=== PATIENT | male | born 1980 | race Caucasian/White ===

== ENCOUNTER 2016-07-03 19:56 | Emergency (ER) ==
--- NOTE | 2016-07-03 20:50 | PROVIDER DOCUMENTATION ---
HPI-Musculoskeletal Pain/Inj - HX OF PRESENT ILLNESS-MUSKULOSKELTAL Quality of Pain: reports: aching Severity in ED: moderate Onset/Duration: just prior to arrival Timing: constant, getting worse Modifying Factors: improves with: immobilization Any recent injury?: Yes Locality of Occurance: Home Similar Symptoms Previously?: No Recently seen or treated by another doctor?: No <Niru Jimenez - Last Filed: 07/03/16 20:51> <Héctor Abdul - Last Filed: 07/03/16 22:04> - GENERAL Chief Complaint: Shoulder Injury Stated Complaint: @1500 RT SHOULDER DISLOCATED Time Seen by Provider: 07/03/16 20:43 - HX OF PRESENT ILLNESS-MUSKULOSKELTAL Nature of Presenting Problem: Pt states he fell while trying to jump a fence and dislocated his right shoulder. Has a friend attempt to pull the shoulder but his caused increased pain. Pt state he is unable to lower the shoulder as this makes it feel unstable and increases pain, is most comfortable with shoulder at 90 degrees horizontal abduction. Denies any other pain from fall. (Niru Jimenez) Review of Systems - Adult - REVIEW OF SYSTEMS - ADULT Constitutional: denies: chills, fever Eyes: denies: blurred vision, double vision Cardiovascular: denies: chest pain, irregular heart rate Respiratory: denies: cough, shortness of breath Gastrointestinal: denies: diarrhea, nausea, vomiting Musculoskeletal: reports: joint pain, muscle aches Neurological: denies: numbness, paresthesia All Other Systems: Reviewed and Negative <Niru Jimenez - Last Filed: 07/03/16 20:51> Past History - Adult - PAST MEDICAL HISTORY-ADULT Review of Records: reports: Old Records Reviewed, Nursing Assessment Review, Medications Reviewed, Social history reviewed & non-contributory. Major Childhood Illnesses: reports: denies history <Niru Jimenez - Last Filed: 07/03/16 20:51> Physical Exam-Injury Related - Physical Exam-Injury Related Initial Vital Signs Reviewed: Yes General Appearance: appears well, alert, moderate distress Eyes: PERRL/EOMI, pink conjunctivae Head, Ears, Nose, Mouth & Throat: normocephalic/atraumatic, moist mucous membranes Neck: non-tender, full range of motion, supple. negative: C-spine tenderness, decresed ROM, muscle spasm, pain on movement, vertebral point tenderness Respiratory: chest non-tender, lungs clear, normal breath sounds Cardiovascular: regular rate, rhythm, no edema Back Exam: normal inspection, no vertebral tenderness Extremity: normal gait, tenderness (right posterior shoulder with) Integumentary: normal color, warm/dry, blanching Neurologic: grossly normal, no motor/sensory deficits Psych/Mental Status: normal thought content, normal thought process - Glascow Coma Score Best Eye Response ([place]): (4) open spontaneously Best Verbal Response ([place]): (5) oriented Best Motor Response ([place]): (6) obeys commands [place] Total: 15 <Niru Jimenez - Last Filed: 07/03/16 20:51> Progress - CHANGE OF SHIFT REPORT (ED Provider) Report Given and Care Transferred to:: [facility] Time of Transfer: 20:51 Items Pending: Pain Control, Procedure Tentative Impression of Patient: shoulder dislocation <Niru Jimenez - Last Filed: 07/03/16 20:51> Procedures - DISLOCATION REDUCTION Right Shoulder Time-Out Verification Completed?: Yes Pre-Procedure Neurovascular Exam: Intact Conscious Sedation: Yes Reduction Attempts: 1 Post Procedure Neurovascular Exam: Intact Post Reduction Splint Applied?: Yes (sling) <Héctor Abdul - Last Filed: 07/03/16 22:04> Departure <Niru Jimenez - Last Filed: 07/03/16 20:51> - Departure Time of Disposition Order: 22:03 Certified Medical Emergency: Emergent <Héctor Abdul - Last Filed: 07/03/16 22:04> - Departure DIAGNOSIS: Shoulder dislocation Disposition: HOME 01 Condition: Stable Prescriptions: Methocarbamol [Robaxin-750] 750 mg PO TID #30 tablet Tramadol [Ultram] 50 mg PO TID #30 tablet Referrals: None,PCP [Primary Care Provider] - Wilson Ruiz MD [STAFF PHYSICIAN] - Attestation - Physician/ NABIL Attestation Patient care was provided by Advanced Practice Provider:: Yes Advanced Practice Provider:: Niru Jimenez Advanced Practice Provider documentation review:: The Mid-level provider documentation, treatment plan and medical decision making was reviewed by the physician who agrees with all treatment and medical decision making by the MLP. <Niru Jimenez - Last Filed: 07/03/16 20:51> Physician Attestation
[2016-07-03] MEDS ORDERED: ZOFRAN IV ONE (20:59)
[2016-07-03] MEDS ORDERED: DILAUDID IV ONE (20:59)
[2016-07-03] MEDS ORDERED: VERSED IV ONE (21:33)
[2016-07-04 00:11] VITALS: BP 139/87
--- NOTE | 2016-07-04 07:35 | Diag Imaging Result Document ---
PROCEDURE NAME: SHOULDER-RIGHT - 07/03/2016 RIGHT SHOULDER, TWO VIEWS: FINDINGS: The humeral head is dislocated inferiorly and anteriorly. No fracture. No separation at the acromioclavicular joint. IMPRESSION: Anterior inferior shoulder dislocation.
--- NOTE | 2016-07-04 07:46 | Diag Imaging Result Document ---
PROCEDURE NAME: SHOULDER 1 VIEW RIGHT - 07/03/2016 POST REDUCTION SHOULDER SINGLE VIEW: COMPARISON: Compared to films taken earlier. FINDINGS: The humeral head now lies in its normal position in the glenoid. Deformity to the humeral head consistent with depressed fracture. This may or may not be due to the recent dislocation. No separation at the acromioclavicular joint. No other fracture. IMPRESSION: Humeral head is now relocated in its normal position. [facility]
== END 2016-07-04 00:14 | disposition home or self-care (01) ==
LOC: ED 19:56
DX: S43.004A Unspecified dislocation of right shoulder joint, initial encounter (principal); M25.511 Pain in right shoulder; M79.1 Myalgia; W19.XXXA Unspecified fall, initial encounter
CPT/HCPCS: 96374; J1170; J2250; J2405